=== PATIENT | female | born 1995 | race American Indian/Alaskan Native ===

== ENCOUNTER 2017-10-07 18:20 | Emergency (ER) | payer OTHER ==
[2017-10-07 19:46] LABS: HCG Qualitative,Urine Negative (Negative)
[2017-10-07 19:49] LABS: Bacteria,Urine 1+ /HPF (Negative); Bilirubin,Urine NEG (Negative); Blood,Urine NEG (Negative); Color,Urine Yellow (Yellow); Mucus,Urine 3+ /HPF; Nitrite,Urine NEG (Negative); Protein,Urine <15 mg/dL mg/dL (Negative); Urobilinogen,Urine < 2.0 mg/dL (<2.0)
--- NOTE | 2017-10-07 23:05 | Emergency Department Report ---
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 Patient states she is only visiting here and is not from [place]. She states she has burning in the vaginal area. She denies vaginal discharge, bleeding, frequency, dysuria, fever, chills, nausea, vomiting or abdominal pain or any other symptoms. - Related Data Previous Rx's Medication Instructions Recorded Last Taken Type Acyclovir 800 mg PO BID #60 tablet 10/07/17 Unknown Rx Ciprofloxacin HCl [Ciprofloxacin 500 mg PO Q12H #14 tab 10/07/17 Unknown Rx TAB] Allergies Allergy/AdvReac Type Severity Reaction Status Date / Time No Known Allergies Allergy Unverified 10/07/17 18:27 ED Review of Systems ROS: Stated complaint: VAGINAL DISCHARGE Other details as noted in HPI Constitutional: denies: chills, fever Eyes: denies: eye pain, eye discharge, vision change ENT: denies: ear pain, throat pain Respiratory: denies: cough, shortness of breath, wheezing Cardiovascular: denies: chest pain, palpitations Endocrine: no symptoms reported Gastrointestinal: denies: abdominal pain, nausea, diarrhea Genitourinary: denies: urgency, dysuria, discharge Musculoskeletal: denies: back pain, joint swelling, arthralgia Skin: denies: rash, lesions Neurological: denies: headache, weakness, paresthesias Psychiatric: denies: anxiety, depression Hematological/Lymphatic: denies: easy bleeding, easy bruising ED Past Medical Hx - Past Medical History Previous Medical History?: Yes Additional medical history: vaginal delivery 01-31-2015 - Surgical History Past Surgical History?: No - Social History Smoking Status: Never Smoker Substance Use Type: None - Medications Home Medications: Home Medications Medication Instructions Recorded Confirmed Last Taken Type Acyclovir 800 mg PO BID #60 tablet 10/07/17 Unknown Rx Ciprofloxacin HCl [Ciprofloxacin 500 mg PO Q12H #14 tab 10/07/17 Unknown Rx TAB] ED Physical Exam - General Limitations: No Limitations General appearance: alert, in no apparent distress - Head Head exam: Present: atraumatic, normocephalic - Eye Eye exam: Present: normal appearance - ENT ENT exam: Present: mucous membranes moist - Neck Neck exam: Present: normal inspection - Respiratory Respiratory exam: Present: normal lung sounds bilaterally. Absent: respiratory distress - Cardiovascular Cardiovascular Exam: Present: regular rate, normal rhythm. Absent: systolic murmur, diastolic murmur, rubs, gallop - GI/Abdominal GI/Abdominal exam: Present: soft, normal bowel sounds - External exam: Present: erythema, lesions (consistent with herepes on outer vulva). Absent: swelling, lacerations, ecchymosis, bleeding - Extremities Exam Extremities exam: Present: normal inspection - Back Exam Back exam: Present: normal inspection - Neurological Exam Neurological exam: Present: alert, oriented X3 - Psychiatric Psychiatric exam: Present: normal affect, normal mood - Skin Skin exam: Present: warm, dry, intact, normal color. Absent: rash ED Course Vital Signs 10/07/17 18:27 Temperature 98.8 F Pulse Rate 99 H Respiratory 16 Rate Blood Pressure 119/63 O2 Sat by Pulse 98 Oximetry ED Medical Decision Making - Medical Decision Making 22-year-old female presents with genital herpes ED course: Urinalysis, urine test ordered. Urinalysis positive for bacteria, explained. UPT negative I discussed findings with the patient. I discussed the patient to abstain from sex while she has a physical outbreak. I discussed her follow-up with her industrial photographer when she returns to her home town. Vital signs are normal patient is in no acute distress. Critical care attestation.: If time is entered above; I have spent that time in minutes in the direct care of this critically ill patient, excluding procedure time. ED Disposition Clinical Impression: Genital herpes Qualifiers: Herpes simplex infection site: vulvovaginitis Qualified Code(s): A60.04 - Herpesviral vulvovaginitis UTI (urinary tract infection) Qualifiers: Urinary tract infection type: acute cystitis Hematuria presence: without hematuria Qualified Code(s): N30.00 - Acute cystitis without hematuria Disposition: TO HOME OR SELFCARE Is pt being admited?: No Does the pt Need Aspirin: No Condition: Stable Instructions: Genital Herpes Simplex (ED), Urinary Tract Infection in Women (ED ) Additional Instructions: Make sure to follow up with the primary care physician as discussed. Take all your medications as you've been prescribed. If you have any worsening symptoms or develop new symptoms please return to ED immediately. Prescriptions: Acyclovir 800 mg PO BID #60 tablet Ciprofloxacin HCl [Ciprofloxacin TAB] 500 mg PO Q12H #14 tab Referrals: PRIMARY CAREMD [Primary Care Provider] - 3-5 Days NIKIA JUAREZ MD [Referring] - 3-5 Days [facility] [Outside] - 3-5 Days Forms: Work/School Release Form(ED) Time of Disposition: 23:28
[2017-10-08 01:10] VITALS: BP 98/47
== END 2017-10-07 23:45 | disposition home or self-care (01) ==
LOC: ED 18:20
DX: A60.04 Herpesviral vulvovaginitis (principal); N30.00 Acute cystitis without hematuria
CPT/HCPCS: 81001; 81025; 99283

== ENCOUNTER 2018-03-12 16:37 | Emergency (ER) | payer OTHER ==
[2018-03-12 17:27] VITALS: BP 120/67
[2018-03-12] MEDS ORDERED: BENADRYL IV ONE (19:10)
[2018-03-12 20:11] LABS: Bilirubin,Urine NEG (Negative); Blood,Urine NEG (Negative); Color,Urine Straw (Yellow); Protein,Urine <15 mg/dL mg/dL (Negative); RBC,Urine < 1.0 /HPF (0.0-6.0); Urobilinogen,Urine < 2.0 mg/dL (<2.0); WBC,Urine < 1.0 /HPF (0.0-6.0)
--- NOTE | 2018-03-12 20:16 | Emergency Department Report ---
ED General Adult HPI - General Chief complaint: Dyspnea/Respdistress Stated complaint: SOB Time Seen by Provider: 03/12/18 19:09 Source: patient Mode of arrival: Ambulatory Limitations: No Limitations - History of Present Illness Initial comments: There is a 22-year-old -Indian female 7 weeks . Patient presents with anxiety dystonia after taking Reglan by mouth prescribed today for nausea and vomiting patient states did know she was allergic to it states anxiousness call provider was advised to report to ED to get Benadryl patient denies shortness of breath as stated on triage statement there is no wheeze no shortness of breath no nausea vomiting complaint is itching anxiety is no cramping or vaginal bleeding no back pain No dysuria - Related Data Previous Rx's Medication Instructions Recorded Last Taken Type Acyclovir 800 mg PO BID #60 tablet 10/07/17 Unknown Rx Ciprofloxacin HCl [Ciprofloxacin 500 mg PO Q12H #14 tab 10/07/17 Unknown Rx TAB] Ondansetron [Zofran Odt] 4 mg PO Q8HR PRN #20 tab.rapdis 03/12/18 Unknown Rx diphenhydrAMINE [Benadryl CAP] 25 mg PO Q6HR PRN #30 capsule 03/12/18 Unknown Rx Allergies Allergy/AdvReac Type Severity Reaction Status Date / Time No Known Allergies Allergy Unverified 10/07/17 18:27 ED Review of Systems ROS: Stated complaint: SOB Other details as noted in HPI Constitutional: malaise. denies: chills, fever Eyes: denies: eye pain, eye discharge, vision change ENT: denies: ear pain, throat pain Respiratory: denies: cough, shortness of breath, wheezing Cardiovascular: denies: chest pain, palpitations Endocrine: no symptoms reported Gastrointestinal: denies: abdominal pain, nausea, diarrhea Genitourinary: denies: urgency, dysuria, discharge Musculoskeletal: denies: back pain, joint swelling, arthralgia Skin: pruritus. denies: rash, lesions Neurological: denies: headache, weakness, paresthesias Psychiatric: denies: anxiety, depression Hematological/Lymphatic: denies: easy bleeding, easy bruising ED Past Medical Hx - Past Medical History Previous Medical History?: No Additional medical history: vaginal delivery 01-31-2015 - Surgical History Past Surgical History?: No - Social History Smoking Status: Never Smoker Substance Use Type: None - Medications Home Medications: Home Medications Medication Instructions Recorded Confirmed Last Taken Type Acyclovir 800 mg PO BID #60 tablet 10/07/17 Unknown Rx Ciprofloxacin HCl [Ciprofloxacin 500 mg PO Q12H #14 tab 10/07/17 Unknown Rx TAB] Ondansetron [Zofran Odt] 4 mg PO Q8HR PRN #20 tab.rapdis 03/12/18 Unknown Rx diphenhydrAMINE [Benadryl CAP] 25 mg PO Q6HR PRN #30 capsule 03/12/18 Unknown Rx ED Physical Exam - General Limitations: No Limitations General appearance: alert, in no apparent distress - Head Head exam: Present: atraumatic, normocephalic - Eye Eye exam: Present: normal appearance, PERRL, EOMI Pupils: Present: normal accommodation - ENT ENT exam: Present: mucous membranes moist - Neck Neck exam: Present: normal inspection - Respiratory Respiratory exam: Present: normal lung sounds bilaterally. Absent: respiratory distress - Cardiovascular Cardiovascular Exam: Present: regular rate, normal rhythm. Absent: systolic murmur, diastolic murmur, rubs, gallop - GI/Abdominal GI/Abdominal exam: Present: soft, normal bowel sounds - Rectal Rectal exam: Present: deferred - Extremities Exam Extremities exam: Present: normal inspection, full ROM, normal capillary refill , other (mild tremor upper extem). Absent: tenderness, pedal edema, joint swelling, calf tenderness - Back Exam Back exam: Present: normal inspection, full ROM. Absent: tenderness, CVA tenderness (R), CVA tenderness (L), muscle spasm, paraspinal tenderness, vertebral tenderness, rash noted - Neurological Exam Neurological exam: Present: alert, oriented X3, CN II-XII intact, normal gait, reflexes normal. Absent: motor sensory deficit - Expanded Neurological Exam Expanded Patient oriented to: Present: person, place, time Speech: Present: fluid speech Cranial nerves: EOM's Intact: Normal, Gag Reflex: Normal, Tongue Deviation: Normal, Nystagmus: Normal, Facial Sensation: Normal, Facial Palsy with Forehead Movement: Normal, Facial Palsy without Forehead Movement: Normal Cerebellar function: Finger to Nose: Normal, Heel to Holley: Normal, Romberg: Normal Upper motor neuron: [place] Neglect: Normal, Pronator Drift: Normal, Babinski Sign : Normal, Sensory Extinction: Normal Sensory exam: Upper Extremity Light Touch: Normal, Upper Extremity Pin Prick: Normal, Upper Extremity Temperature: Normal, UE 2 Point Discrimination: Normal, Lower Extremity Light Touch: Normal, Lower Extremity Pin Prick: Normal, Lower Extremity Temperature: Normal, LE 2 Point Discrimination: Normal Motor strength exam: RUE: 5, LUE: 5, RLE: 5, LLE: 5 DTR: bicep (R): 2+, bicep (L): 2+, tricep (R): 2+, tricep (L): 2+, knee (R): 2+ , knee (L): 2+, ankle (R): 2+, ankle (L): 2+ Best Eye Response ([place]): (4) open spontaneously Best Motor Response ([place]): (6) obeys commands Best Verbal Response ([place]): (5) oriented Azam Total: 15 - Psychiatric Psychiatric exam: Present: normal affect, anxious. Absent: manic, homicidal ideation, suicidal ideation - Skin Skin exam: Present: warm, dry, intact, normal color. 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 ED Disposition Clinical Impression: Dystonia Allergic reaction Qualifiers: Encounter type: initial encounter Qualified Code(s): T78.40XA - Allergy, unspecified, initial encounter Disposition: DC-01 TO HOME OR SELFCARE Is pt being admited?: No Does the pt Need Aspirin: No Condition: Good Instructions: Allergies (ED) Prescriptions: diphenhydrAMINE [Benadryl CAP] 25 mg PO Q6HR PRN #30 capsule PRN Reason: allergies Ondansetron [Zofran Odt] 4 mg PO Q8HR PRN #20 tab.rapdis PRN Reason: Nausea And Vomiting Referrals: PRIMARY CARE, [Primary Care Provider] - 3-5 Days Forms: Work/School Release Form(ED) Time of Disposition: 20:23
== END 2018-03-12 20:52 | disposition home or self-care (01) ==
LOC: ED 16:37
DX: O99.321 Drug use complicating pregnancy, first trimester (principal); G24.09 Other drug induced dystonia; T45.0X5A Adverse effect of antiallergic and antiemetic drugs, initial encounter; T78.40XA Allergy, unspecified, initial encounter; Z3A.01 Less than 8 weeks gestation of pregnancy; Y92.89 Other specified places as the place of occurrence of the external cause
CPT/HCPCS: 81001; 96374; 99282; J1200

== ENCOUNTER 2021-06-16 05:14 | Emergency (ER) | payer SELFPAY ==
[2021-06-16 05:49] VITALS: BP 117/72
--- NOTE | 2021-06-16 09:47 | Emergency Department Report ---
ED General Adult HPI - General Chief complaint: Anxiety Stated complaint: CHEST PAIN/BURNING Time Seen by Provider: 06/16/21 07:26 Source: patient Mode of arrival: Ambulatory Limitations: No Limitations - History of Present Illness Initial comments: The patient was evaluated in the emergency department for symptoms described in the history of present illness. He/she was evaluated in the context of the global COVID-19 pandemic, which necessitated consideration that the patient might be at risk for infection with the virus that causes COVID-19. Insti tutional protocols and algorithms that pertain to the evaluation of patients at risk for COVID-19 are in a state of rapid change based on information released by regulatory bodies including the CDC and federal and state organizations. These policies and algorithms were followed during the patient's care in the emergency department. Please note that these policies, procedures and recommendations changed on a rapid basis. 25-year-old -[place] female who has a history of anxiety and chronic chest pain. Patient presents to the emergency room complaining of intermittent chest pain that vigil midsternal. Patient states that she took a baby aspirin and her symptoms improved. Patient states that she had a full cardiac work-up when she was at [place] and they did not see see anything concerning. Patient reports that her father of [place] at the age of 26. Patient endorsed that she is concerned for these chest pains and does not want to . Patient reports she does not have a primary care provider but has set appointment up for June 21 at a doctor in [place]. Patient states that she sees a psychiatrist weekly for her anxiety. She states that she is on BuSpar at this time. Patient denies any alcohol use does not smoke cigarettes or marijuana. Patient reports that she has 2 children. 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 She reports that she had a history of Covid in the past and that is when she started having these chest discomforts. Onset/Timin -: month(s) Location: chest Radiation: non-radiation Severity scale (0 -10): 4 Quality: burning Consistency: intermittent Improves with: medication (Aspirin) Worsens with: none Associated Symptoms: denies: cough, diaphoresis, fever/chills, headaches, loss of appetite, nausea/vomiting, rash, shortness of breath, syncope, weakness Treatments Prior to Arrival: Aspirin - Related Data Previous Rx's Medication Instructions Recorded Last Taken Type Acyclovir 800 mg PO BID #60 tablet 10/07/17 Unknown Rx Ciprofloxacin HCl [Ciprofloxacin 500 mg PO Q12H #14 tab 10/07/17 Unknown Rx TAB] Ondansetron [Zofran Odt] 4 mg PO Q8HR PRN #20 tab.rapdis 03/12/18 Unknown Rx diphenhydrAMINE [Benadryl CAP] 25 mg PO Q6HR PRN #30 capsule 03/12/18 Unknown Rx Allergies Allergy/AdvReac Type Severity Reaction Status Date / Time No Known Allergies Allergy Unverified 10/07/17 18:27 ED Review of Systems ROS: Stated complaint: CHEST PAIN/BURNING Other details as noted in HPI Comment: All other systems reviewed and negative ED Past Medical Hx - Past Medical History Previous Medical History?: Yes Hx Psychiatric Treatment: Yes (ANXIETY) Additional medical history: vaginal delivery 01-31-2015 - Surgical History Past Surgical History?: No - Social History Smoking Status: Never Smoker Substance Use Type: None - Medications Home Medications: Home Medications Medication Instructions Recorded Confirmed Last Taken Type Acyclovir 800 mg PO BID #60 tablet 10/07/17 Unknown Rx Ciprofloxacin HCl [Ciprofloxacin 500 mg PO Q12H #14 tab 10/07/17 Unknown Rx TAB] Ondansetron [Zofran Odt] 4 mg PO Q8HR PRN #20 tab.rapdis 03/12/18 Unknown Rx diphenhydrAMINE [Benadryl CAP] 25 mg PO Q6HR PRN #30 capsule 03/12/18 Unknown Rx ED Physical Exam - General Limitations: No Limitations General appearance: alert, in no apparent distress - Head Head exam: Present: atraumatic, normocephalic - Eye Eye exam: Present: normal appearance, PERRL, EOMI. Absent: periorbital swelling - ENT ENT exam: Present: normal exam, mucous membranes moist, normal external ear exam - Neck Neck exam: Present: normal inspection, full ROM - Respiratory Respiratory exam: Present: normal lung sounds bilaterally, chest wall tenderness (Midsternal). Absent: respiratory distress - Cardiovascular Cardiovascular Exam: Present: regular rate, normal rhythm. Absent: systolic murmur, diastolic murmur, rubs, gallop - GI/Abdominal GI/Abdominal exam: Present: soft, normal bowel sounds - Extremities Exam Extremities exam: Present: normal inspection - Back Exam Back exam: Present: normal inspection - Neurological Exam Neurological exam: Present: alert, oriented X3, normal gait - Psychiatric Psychiatric exam: Present: normal affect, normal mood, anxious - Skin Skin exam: Present: warm, dry, intact, normal color. Absent: rash ED Course Vital Signs 06/16/21 05:21 Temperature 98.1 F Pulse Rate 100 H Respiratory 16 Rate Blood Pressure 117/72 O2 Sat by Pulse 97 Oximetry ED Medical Decision Making - Medical Decision Making 25-year-old -[place] female who has a history of anxiety and chronic chest pain. Patient presents to the emergency room complaining of intermittent chest pain that vigil midsternal. Patient states that she took a baby aspirin and her symptoms improved. Patient states that she had a full cardiac work-up when she was at [place] and they did not see see anything concerning. Patient reports that her father of [place] at the age of 26. Patient endorsed that she is concerned for these chest pains and does not want to . Patient reports she does not have a primary care provider but has set appointment up for June 21 at a doctor in [place]. Patient states that she sees a psychiatrist weekly for her anxiety. She states that she is on BuSpar at this time. Patient denies any alcohol use does not smoke cigarettes or marijuana. Patient reports that she has 2 children. 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 She reports that she had a history of Covid in the past and that is when she started having these chest discomforts. Patient does report th at when she came in to be seen she had to go home and check on her kids and then she returned back to the emergency room. I offered patient to do a repeat work-up but she declined. She states that she will keep her appointment on June 21. ER EMT Solomon reported to me the patient left about being discharged. He also endorsed that she she had left before. Critical care attestation.: If time is entered above; I have spent that time in minutes in the direct care of this critically ill patient, excluding procedure time. ED Disposition Clinical Impression: Chronic chest pain Disposition: 07 LEFT AWOL/ELOPED Is pt being admited?: No Does the pt Need Aspirin: No Condition: Stable Instructions: Nonspecific Chest Pain, Adult, Chest Wall Pain Additional Instructions: Try taking Advil for your pain. As we discussed I recommend keeping a diary of your chest pain with your pulse and blood pressure. Please obtain a detailed family history of of any cardiac disease cancers or lung disease from your parents and grandparents. 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 Please return back to the emergency room if you have any worsening symptoms. Continue with all medications that you take. Be sure to increase your fluid intake. Referrals: RICKIE CASTELLANOS MD [Staff Physician] - 3-5 Days ALEM STRNIGER MD [Staff Physician] - 3-5 Days
== END 2021-06-16 10:10 | disposition left against medical advice (07) ==
LOC: ED 05:14
DX: R07.9 Chest pain, unspecified (principal); G89.29 Other chronic pain; F41.9 Anxiety disorder, unspecified; Z86.59 Personal history of other mental and behavioral disorders
CPT/HCPCS: 99281